=== PATIENT | female | born 1975 | race Caucasian/White ===

== ENCOUNTER 2022-04-17 13:20 | Emergency (ER) | payer OTHER ==
[2022-04-17 14:15] LABS: BASOPHIL 0.5 % (0-2); EOSINOPHIL 0.6 % (0-5); HCT 51.9 % (37.0-47.0); HGB 18.1 g/dl (12.5-16.0); LYMPHOCYTE 19.2 % (15-48); MCH 33.3 pg (25.0-31.0); MCHC 34.9 g/dL (32.0-36.0); MCV 95.6 fL (78.0-100.0); MONOCYTE 7.6 % (0-12); MPV 11.3 fL (6.0-9.5); NEUTROPHIL 71.3 % (41-80); NRBC 0; PLT 361 K/uL (150-400); RBC 5.43 M/uL (4.20-5.40); RDW 13.2 % (11.5-14.0)
[2022-04-17 14:23] LABS: ALBUMIN 4.2 g/dL (3.4-5.0); BILIRUBIN - TOTAL 0.7 mg/dL (0.2-1.0); BUN/CREAT RATIO (CALC) 11.9 RATIO; CREATININE 0.67 mg/dL (0.51-0.95); GLOBULIN (CALCULATION) 3.4 g/dL; POTASSIUM 3.8 mmol/L (3.5-5.1); TOTAL PROTEIN 7.6 g/dL (6.4-8.2)
[2022-04-17 14:25] LABS: LACTIC ACID 2.2 mmol/L (0.4-1.9)
[2022-04-17 15:04] LABS: CORONAVIRUS 2019 SARS-COV-2 NEGATIVE (NEGATIVE); INFLUENZA A NAA NEGATIVE (NEGATIVE)
[2022-04-17 17:12] LABS: BILIRUBIN NEGATIVE (NEGATIVE); BLOOD NEGATIVE Ery/uL (NEGATIVE); CLARITY CLEAR (CLEAR); COLOR YELLOW (YELLOW); GLUCOSE (U) NORMAL (NORMAL); LEUKOCYTES NEGATIVE Leu/uL (NEGATIVE); NITRITE POSITIVE (NEGATIVE); PROTEIN TRACE (LOW) mg/dL (NEGATIVE); SPECIFIC GRAVITY <=1.005 (1.001-1.030)
[2022-04-17 17:28] LABS: BACTERIA 1+
[2022-04-17] MEDS ORDERED: CEPHALEXIN500 MG PO (17:47)
== END 2022-04-17 18:46 | disposition home or self-care (01) ==
LOC: FER 13:20
PROVIDERS: Emergency Medicine
DX: E86.0 Dehydration (principal); N39.0 Urinary tract infection, site not specified; J44.9 Chronic obstructive pulmonary disease, unspecified; I10 Essential (primary) hypertension; Z20.822 Contact with and (suspected) exposure to COVID-19; Z28.310 Unvaccinated for COVID-19
CPT/HCPCS: 36415; 71275; 80053; 81001; 83605; 83690; 84145; 84484; 85025; 87040; 93005; J0692; J1885; J2405; J7030; Q9967; U0002

== ENCOUNTER 2022-06-15 14:02 | Emergency (ER) | payer OTHER ==
[~2022-06-15 14:02] MED LIST: CEPHALEXIN500 MG PO
[2022-06-15] MEDS ORDERED: NORCO 5-325 TA1 EACH PO (14:42)
[2022-06-15] MEDS ORDERED: MEDROL 4MG DOSEP4 MG PO (14:42)
== END 2022-06-15 14:55 | disposition home or self-care (01) ==
LOC: FER 14:02
DX: M51.16 Intervertebral disc disorders with radiculopathy, lumbar region (principal); S80.212A Abrasion, left knee, initial encounter; G89.29 Other chronic pain; I10 Essential (primary) hypertension; J44.9 Chronic obstructive pulmonary disease, unspecified; F17.290 Nicotine dependence, other tobacco product, uncomplicated; Z28.310 Unvaccinated for COVID-19; Z88.6 Allergy status to analgesic agent; Z88.8 Allergy status to other drugs, medicaments and biological substances; W19.XXXA Unspecified fall, initial encounter; Y92.89 Other specified places as the place of occurrence of the external cause
CPT/HCPCS: 99283

== ENCOUNTER 2022-07-29 03:22 | Emergency (ER) | payer OTHER ==
[~2022-07-29 03:22] MED LIST changes: +MEDROL 4MG DOSEP4 MG PO; +NORCO 5-325 TA1 EACH PO
[2022-07-29 04:35] LABS: BASOPHIL 0.5 % (0-2); EOSINOPHIL 0.7 % (0-5); HGB 18.5 g/dl (12.5-16.0); LYMPHOCYTE 21.2 % (15-48); MCH 32.9 pg (25.0-31.0); MCHC 34.9 g/dL (32.0-36.0); MCV 94.3 fL (78.0-100.0); MPV 11.2 fL (6.0-9.5); NEUTROPHIL 70.2 % (41-80); NRBC 0; PLT 314 K/uL (150-400); RBC 5.62 M/uL (4.20-5.40); RDW 13.2 % (11.5-14.0); WBC 14.4 K/uL (4.0-10.5)
[2022-07-29 04:53] LABS: ALBUMIN 3.8 g/dL (3.4-5.0); BILIRUBIN - TOTAL 0.6 mg/dL (0.2-1.0); BUN/CREAT RATIO (CALC) 11.1 RATIO; CREATININE 0.63 mg/dL (0.51-0.95); GLOBULIN (CALCULATION) 4.3 g/dL; POTASSIUM 3.7 mmol/L (3.5-5.1); TOTAL PROTEIN 8.1 g/dL (6.4-8.2)
[2022-07-29 05:08] LABS: CORONAVIRUS 2019 SARS-COV-2 NEGATIVE (NEGATIVE); INFLUENZA A NAA NEGATIVE (NEGATIVE)
[2022-07-29 06:39] LABS: BILIRUBIN NEGATIVE (NEGATIVE); BLOOD 2+ Ery/uL (NEGATIVE); CLARITY CLEAR (CLEAR); COLOR YELLOW (YELLOW); GLUCOSE (U) NORMAL (NORMAL); LEUKOCYTES 1+ Leu/uL (NEGATIVE); NITRITE POSITIVE (NEGATIVE); PROTEIN NEGATIVE (NEGATIVE); UROBILINOGEN 0.2 mg/dL (0.2-1.0); pH 6.5 (5.0-9.0)
[2022-07-29 06:45] LABS: BACTERIA 4+; URINARY RBC RARE
[2022-07-29] MEDS ORDERED: CIPRO500 MG PO (07:21)
[2022-07-29] MEDS ORDERED: PHENERGAN12.5 M1 PO (07:21)
== END 2022-07-29 08:30 | disposition home or self-care (01) ==
LOC: FER 03:22
PROVIDERS: Emergency Medicine
DX: N39.0 Urinary tract infection, site not specified (principal); Z88.1 Allergy status to other antibiotic agents; Z88.6 Allergy status to analgesic agent; Z20.822 Contact with and (suspected) exposure to COVID-19
CPT/HCPCS: 36415; 80053; 81001; 84484; 85025; 93005; J0696; J1790; J2175; J2405; J7030; U0002